=== PATIENT | female | born 1960 | race Hispanic/Latino ===

== ENCOUNTER 2020-09-08 10:08 | Emergency (ER) | payer MEDICAID ==
[~2020-09-08] VITALS: Ht 152.4 cm; Wt 63.5 kg
[2020-09-08 11:31] LABS: BASOPHILS % (AUTO) 0.9 % (0.0-5.0); EOSINOPHILS % (AUTO) 4.4 % (0.0-8.0); MEAN CORPUSCULAR HEMOGLOBIN 23.9 pg (27.0-33.0); MEAN CORPUSCULAR HGB CONC 29.7 g/dL (32.0-36.0); MEAN CORPUSCULAR VOLUME 80.3 fL (79-99); MONOCYTES % (AUTO) 7.6 % (3.0-13.0); NEUTROPHILS % (AUTO) 69.8 % (40.0-77.0); PLATELET COUNT (AUTO) 347 K/uL (130-400); RED BLOOD CELL COUNT(AUTO) 4.61 MIL/uL (4.00-5.50); RED CELL DISTRIBUTION WIDTH 18.2 % (11.0-15.5); WHITE BLOOD COUNT (AUTO) 6.9 K/uL (4.8-10.8)
[2020-09-08 11:40] LABS: ALCOHOL, BLOOD < 3 mg/dL (0-10)
[2020-09-08 11:41] LABS: ACETAMINOPHEN < 1 mcg/mL (10-30); SALICYLATE < 2.8 mg/dL (2.8-20.0)
[2020-09-08] MEDS ORDERED: FAMO-136 PO (11:52)
== END 2020-09-08 12:21 | disposition home or self-care (01) ==
LOC: EDH 10:08
DX: R07.0 Pain in throat (principal); F31.9 Bipolar disorder, unspecified; I10 Essential (primary) hypertension; K21.9 Gastro-esophageal reflux disease without esophagitis; F20.9 Schizophrenia, unspecified; Z79.899 Other long term (current) drug therapy
CPT/HCPCS: 36415; 85025; 99283; G0481

== ENCOUNTER 2021-08-06 23:11 | Emergency (ER) | payer MEDICAID ==
[~2021-08-06] VITALS: Ht 154.9 cm; Wt 77.1 kg
[~2021-08-06 23:11] MED LIST: FAMO-136 PO
[2021-08-07 06:37] VITALS: BP 122/72
== END 2021-08-07 06:42 | disposition home or self-care (01) ==
LOC: EDH 23:11
DX: F20.9 Schizophrenia, unspecified (principal); E78.00 Pure hypercholesterolemia, unspecified; K21.9 Gastro-esophageal reflux disease without esophagitis; F32.A Depression, unspecified